=== PATIENT | female | born 1980 ===

== ENCOUNTER → 2017-12-23 | Outpatient (REF) | LOC: M LAB REF 12:19 | DX: Z13.9 Encounter for screening, unspecified (principal) ==

== ENCOUNTER → 2018-08-25 | Outpatient (REF) | LOC: M LAB REF 10:47 | DX: Z00.00 Encounter for general adult medical examination without abnormal findings (principal) ==

== ENCOUNTER → 2018-08-30 | Outpatient (REF) ==
[2018-08-30 12:28] LABS: ESTRADIOL 49.5 PG/ML
== END ==
LOC: M LAB REF 11:56
DX: Z02.89 Encounter for other administrative examinations (principal)

== ENCOUNTER → 2018-09-01 | Outpatient (REF) ==
[2018-09-01 10:16] LABS: ESTRADIOL 303.1 PG/ML
== END ==
LOC: M LAB REF 09:51
DX: Z00.00 Encounter for general adult medical examination without abnormal findings (principal)

== ENCOUNTER → 2018-09-04 | Outpatient (REF) ==
[2018-09-04 12:04] LABS: ESTRADIOL 1257.1 PG/ML
== END ==
LOC: M LAB REF 11:29
DX: Z00.00 Encounter for general adult medical examination without abnormal findings (principal)

== ENCOUNTER → 2018-09-12 | Outpatient (REF) ==
[2018-09-12 12:55] LABS: ESTRADIOL 2887.3 PG/ML
== END ==
LOC: M LAB REF 11:50
DX: Z00.00 Encounter for general adult medical examination without abnormal findings (principal)

== ENCOUNTER → 2018-09-22 | Outpatient (REF) | LOC: M LAB LCGH 09:56 | PROVIDERS: ATTEND Obstetrics & Gynecology Reproductive Endocrinology | DX: Z00.00 Encounter for general adult medical examination without abnormal findings (principal) ==

== ENCOUNTER → 2018-09-27 | Outpatient (REF) | LOC: M LAB LCGH 11:39 | PROVIDERS: ATTEND Obstetrics & Gynecology Reproductive Endocrinology | DX: Z00.00 Encounter for general adult medical examination without abnormal findings (principal) ==

== ENCOUNTER → 2018-09-29 | Outpatient (REF) | LOC: M LAB LCGH 10:31 | PROVIDERS: ATTEND Obstetrics & Gynecology Reproductive Endocrinology | DX: Z00.00 Encounter for general adult medical examination without abnormal findings (principal) ==

== ENCOUNTER → 2018-10-20 | Outpatient (REF) | LOC: M LAB REF 09:50 | PROVIDERS: ATTEND Obstetrics & Gynecology Reproductive Endocrinology | DX: Z51.81 Encounter for therapeutic drug level monitoring (principal); Z79.899 Other long term (current) drug therapy ==

== ENCOUNTER → 2018-10-27 | Outpatient (REF) | LOC: M LAB REF 11:03 | PROVIDERS: ATTEND Obstetrics & Gynecology Reproductive Endocrinology | DX: Z00.00 Encounter for general adult medical examination without abnormal findings (principal) ==

== ENCOUNTER → 2018-11-07 | Outpatient (REF) | LOC: M LAB REF 10:26 | PROVIDERS: ATTEND Obstetrics & Gynecology Reproductive Endocrinology | DX: Z31.49 Encounter for other procreative investigation and testing (principal) ==

== ENCOUNTER → 2018-11-21 | Outpatient (REF) | LOC: M LAB REF 11:32 | PROVIDERS: ATTEND Obstetrics & Gynecology Reproductive Endocrinology | DX: E28.9 Ovarian dysfunction, unspecified (principal) ==

== ENCOUNTER → 2018-11-27 | Outpatient (REF) | LOC: M LAB REF 11:06 | PROVIDERS: ATTEND Obstetrics & Gynecology Reproductive Endocrinology | DX: Z02.9 Encounter for administrative examinations, unspecified (principal) ==